=== PATIENT | male | born 1990 | race Caucasian/White ===

== ENCOUNTER 2017-10-15 12:29 | Emergency (ER) | payer SELFPAY ==
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
[2017-10-15 16:01] VITALS: BP 126/75
== END 2017-10-15 16:01 | disposition home or self-care (01) ==
DX: S92.354A Nondisplaced fracture of fifth metatarsal bone, right foot, initial encounter for closed fracture (principal); F17.200 Nicotine dependence, unspecified, uncomplicated; V68.4XXA Person boarding or alighting a heavy transport vehicle injured in noncollision transport accident, initial encounter; Y92.410 Unspecified street and highway as the place of occurrence of the external cause; Y99.8 Other external cause status; Y93.39 Activity, other involving climbing, rappelling and jumping off